=== PATIENT | male | born 1960 | race Caucasian/White ===

== ENCOUNTER 2017-02-28 19:06 | Observation (INO) | payer OTHER ==
[~2017-02-28] VITALS: Ht 175.3 cm; Wt 115.3 kg
[2017-02-28 19:56] LABS: HEMOGLOBIN 12.3 gm/dl (14.0-17.5); RED BLOOD COUNT 4.71 M/UL (4.20-5.50); WHITE BLOOD COUNT 8.4 K/UL (4.5-11.0)
[2017-02-28 20:22] LABS: BUN/CREATININE RATIO 19 (0-10)
[2017-02-28] MEDS ORDERED: ASPIR 8181 MG PO (23:26)
[2017-02-28] MEDS ORDERED: LIPITOR TAB 2020 MG PO (23:27)
[2017-02-28] MEDS ORDERED: NORVASC 5 MG TAB5 MG PO (23:27)
[2017-02-28] MEDS ORDERED: BUTALB-ACETAMI1 EAC1 PO (23:29)
[2017-02-28] MEDS ORDERED: DULOXETINE HCL60 MG PO (23:30)
[2017-02-28] MEDS ORDERED: VITAMIN C 500500 MG PO (23:30)
[2017-02-28] MEDS ORDERED: ESOMEPRAZOLE MA40 MG PO (23:31)
[2017-02-28] MEDS ORDERED: FISH OIL PO (23:37)
[2017-02-28] MEDS ORDERED: INDOMETHACIN75 MG PO (23:39)
[2017-02-28] MEDS ORDERED: IRON18 MG PO (23:40)
[2017-02-28] MEDS ORDERED: METOPROLOL SUC100 MG PO (23:41)
[2017-02-28] MEDS ORDERED: GLUCOPHAGE500 MG PO (23:41)
[2017-02-28] MEDS ORDERED: SINGULAIR10 MG PO (23:42)
[2017-02-28] MEDS ORDERED: FLOMAX 0.4 MG0.4 MG PO (23:43)
[2017-02-28] MEDS ORDERED: RAMIPRIL10 MG PO (23:43)
[2017-03-03] MEDS ORDERED: CARDIZEM CD240 MG PO (17:17)
[2017-03-03] MEDS ORDERED: MAGNESIUM OXID400 MG PO (17:17)
== END 2017-03-03 18:03 | disposition home or self-care (01) ==
LOC: ER1 19:06 → ZEROF 21:51 → MED SURG 4 21:51
PROVIDERS: Emergency Medicine; ADMIT Internal Medicine
DX: R07.89 Other chest pain (principal); R55 Syncope and collapse; E11.9 Type 2 diabetes mellitus without complications; I10 Essential (primary) hypertension; M19.90 Unspecified osteoarthritis, unspecified site; R42 Dizziness and giddiness; R07.9 Chest pain, unspecified; R00.8 Other abnormalities of heart beat; R93.8 Abnormal findings on diagnostic imaging of other specified body structures; E78.5 Hyperlipidemia, unspecified; N40.0 Benign prostatic hyperplasia without lower urinary tract symptoms; Z88.2 Allergy status to sulfonamides; Z88.5 Allergy status to narcotic agent; Z88.8 Allergy status to other drugs, medicaments and biological substances; Z79.82 Long term (current) use of aspirin; Z79.899 Other long term (current) drug therapy; Z79.84 Long term (current) use of oral hypoglycemic drugs
CPT/HCPCS: ECHO; 36415; 71010; 78452; 80053; 80061; 82550; 82553; 82962; 83735; 83874; 84132; 84443; 84484; 85025; 85610; 85730; 93005; 93017; 93306; 96372; 99285; A9502; G0378; J1650; J2785; J7030

== ENCOUNTER → 2020-07-20 | Outpatient (CLI) | payer OTHER, SELFPAY ==
[~2020-07-20] MED LIST: ALTACE10 MG PO; ASPIR 8181 MG PO; BUTALB-ACETAMI1 EAC1 PO; CARDIZEM CD240 MG PO; CLOTRIMAZOLE CREAM TOP; DULOXETINE HCL60 MG PO; ESOMEPRAZOLE MA40 MG PO; FERGON240 MG PO; FISH OIL PO; FLOMAX 0.4 MG0.4 MG PO; FLOMAX0.4 MG PO; FLUTICASONE SPRAY; GLUCOPHAGE1000 MG PO; GLUCOPHAGE500 MG PO; INDOCIN SR CAP75 MG PO; INDOMETHACIN75 MG PO; IRON18 MG PO; JANUVIA100 MG PO; JARDIANCE25 MG PO; LIPITOR TAB 2020 MG PO; LOPRESSOR 50 MG50 MG PO; MAGNESIUM OXID400 MG PO; METOPROLOL SUC100 MG PO; METOPROLOL SUCC25 MG PO; NORVASC 5 MG TAB5 MG PO; OZEMPIC 2MG/1.5ML PO; RAMIPRIL10 MG PO; ROPINIROLE HCL0.5 MG PO; SINGULAIR10 MG PO; ULTRAM50 MG PO; VIAGRA50 MG PO; VITAMIN B12 PO; VITAMIN C 500500 MG PO; VITAMIN C500 M4 PO; VITAMIN D-32000 UNIT PO
[2020-07-20 10:47] LABS: HEMOGLOBIN 14.6 gm/dl (14.0-17.5); RED BLOOD COUNT 5.29 M/UL (4.20-5.50)
[2020-07-20 11:03] LABS: BUN/CREATININE RATIO 11 (0-10)
== END ==
LOC: OPSV2 10:18
PROVIDERS: Podiatrist Foot & Ankle Surgery
DX: Z01.818 Encounter for other preprocedural examination (principal); L60.0 Ingrowing nail
CPT/HCPCS: 36415; 80048; 83036; 85027; 93005

== ENCOUNTER → 2020-07-26 | Day surgery (SDC) | payer OTHER, SELFPAY | END | disposition home or self-care (01) | LOC: OR 07-21 07:45 | DX: B35.1 Tinea unguium (principal); M79.675 Pain in left toe(s); M79.674 Pain in right toe(s); L60.8 Other nail disorders; I10 Essential (primary) hypertension; E78.5 Hyperlipidemia, unspecified; K21.9 Gastro-esophageal reflux disease without esophagitis; E11.40 Type 2 diabetes mellitus with diabetic neuropathy, unspecified; Z88.2 Allergy status to sulfonamides; Z88.5 Allergy status to narcotic agent; Z88.8 Allergy status to other drugs, medicaments and biological substances; Z79.82 Long term (current) use of aspirin; Z79.84 Long term (current) use of oral hypoglycemic drugs; Z79.899 Other long term (current) drug therapy | CPT/HCPCS: 82962; J0690; J2001; J2250; J2370; J2405; J2704; J2795; J3010; J3370; J7030; J7120 ==

== ENCOUNTER → 2020-10-05 | Outpatient (CLI) | payer OTHER | LOC: KOH-I 10:34 | DX: M50.11 Cervical disc disorder with radiculopathy, high cervical region (principal); M43.22 Fusion of spine, cervical region; M47.22 Other spondylosis with radiculopathy, cervical region | CPT/HCPCS: 72141 ==

== ENCOUNTER 2021-05-31 19:06 | Emergency (ER) | payer OTHER ==
[2021-05-31 19:46] LABS: HEMOGLOBIN 14.3 gm/dl (14.0-17.5); RED BLOOD COUNT 5.04 M/UL (4.20-5.50); WHITE BLOOD COUNT 9.6 K/UL (4.5-11.0)
[2021-05-31 20:08] LABS: BUN/CREATININE RATIO 12 (0-10)
[2021-06-01] MEDS ORDERED: IBUPROFEN800 MG PO (00:32)
[2021-06-01] MEDS ORDERED: PROVENTIL HFA6.7 GM INH (00:32)
== END 2021-06-01 00:45 | disposition home or self-care (01) ==
LOC: ER1 19:06
PROVIDERS: Physician Assistant Medical
DX: J98.11 Atelectasis (principal)
CPT/HCPCS: 71111; 80053; 82550; 82553; 83874; 84484; 85025; 86140; 93005; 99285; Q9967

== ENCOUNTER → 2021-07-30 | Outpatient (CLI) | payer OTHER ==
[~2021-07-30] MED LIST changes: +IBUPROFEN800 MG PO; +PROVENTIL HFA6.7 GM INH
== END ==
LOC: KOH-I 10:09
DX: K76.89 Other specified diseases of liver (principal); N28.1 Cyst of kidney, acquired
CPT/HCPCS: 76700

== ENCOUNTER → 2021-09-25 | Outpatient (CLI) | payer OTHER | LOC: HEART 5 13:18 | DX: R06.02 Shortness of breath (principal) | CPT/HCPCS: 94010; 94729 ==

== ENCOUNTER → 2021-10-25 | Outpatient (CLI) | payer OTHER | LOC: HEART 5 07:56 | DX: R07.89 Other chest pain (principal); R06.00 Dyspnea, unspecified | CPT/HCPCS: 78452; A9502; J2785 ==

== ENCOUNTER → 2021-12-05 | Outpatient (CLI) | payer OTHER | LOC: CT 14:00 | DX: R93.89 Abnormal findings on diagnostic imaging of other specified body structures (principal); R06.00 Dyspnea, unspecified; R91.8 Other nonspecific abnormal finding of lung field | CPT/HCPCS: 71250 ==

== ENCOUNTER 2021-12-25 17:32 | Observation (INO) | payer OTHER ==
[~2021-12-25] VITALS: Ht 175.3 cm; Wt 112.0 kg
[~2021-12-25 17:32] MED LIST changes: +GLUCOPHAGE 500500 MG PO; -GLUCOPHAGE1000 MG PO; -GLUCOPHAGE500 MG PO; -INDOCIN SR CAP75 MG PO; +JARDIANCE10 MG PO; -JARDIANCE25 MG PO; +METFORMIN HCL500 MG PO; -OZEMPIC 2MG/1.5ML PO; +OZEMPIC1 MG/0.71 SQ; -ROPINIROLE HCL0.5 MG PO; +ROPINIROLE HCL2 MG PO; +VITAMIN B-121000 MCG PO; -VITAMIN B12 PO
[2021-12-25 19:25] LABS: HEMOGLOBIN 14.1 gm/dl (14.0-17.5); RED BLOOD COUNT 5.08 M/UL (4.20-5.50); WHITE BLOOD COUNT 8.7 K/UL (4.5-11.0)
[2021-12-25 19:49] LABS: BUN/CREATININE RATIO 21 (0-10)
[2021-12-26 04:06] LABS: HEMOGLOBIN 12.9 gm/dl (14.0-17.5); RED BLOOD COUNT 4.64 M/UL (4.20-5.50); WHITE BLOOD COUNT 7.3 K/UL (4.5-11.0)
[2021-12-26 04:44] LABS: BUN/CREATININE RATIO 18 (0-10)
[2021-12-26] MEDS ORDERED: METHOCARBAMOL500 MG PO (09:50)
[2021-12-26] MEDS ORDERED: NITROGLYCERIN0.4 MG SL (09:57)
[2021-12-26] MEDS ORDERED: ATORVASTATIN CA20 MG PO (17:55)
[2021-12-26] MEDS ORDERED: ISOSORBIDE MONO30 MG PO (18:58)
[2021-12-26] MEDS ORDERED: PROTONIX 40 MG40 M1 PO (19:55)
[2021-12-27 10:55] LABS: BUN/CREATININE RATIO 13 (0-10)
== END 2021-12-27 12:09 | disposition home or self-care (01) ==
LOC: ER1 17:32 → CDU 21:40 → MED SURG 4 21:40
PROVIDERS: Emergency Medicine; Internal Medicine; Physician Assistant; ADMIT Internal Medicine
DX: I25.10 Atherosclerotic heart disease of native coronary artery without angina pectoris (principal); E11.9 Type 2 diabetes mellitus without complications; I10 Essential (primary) hypertension; E78.5 Hyperlipidemia, unspecified; E66.9 Obesity, unspecified; E55.9 Vitamin D deficiency, unspecified; N40.0 Benign prostatic hyperplasia without lower urinary tract symptoms; K21.9 Gastro-esophageal reflux disease without esophagitis; Z87.891 Personal history of nicotine dependence; Z88.2 Allergy status to sulfonamides; Z88.8 Allergy status to other drugs, medicaments and biological substances
CPT/HCPCS: 36415; 71045; 78580; 80048; 80053; 80061; 82550; 82553; 82607; 82962; 83036; 83735; 83880; 84100; 84439; 84443; 84484; 85025; 85379; 93005; 93970; 96372; 99152; 99285; A9540; C1769; C1887; C1894; G0378; J1644; J1650; J2250; J3010; J7040; Q9967